=== PATIENT | male | born 1935 | race Caucasian/White ===

== ENCOUNTER 2020-06-02 18:02 | Emergency (ER) | payer MEDICARE, SELFPAY ==
--- NOTE | ~2020-06-02 | CT_ITS ---
EXAMINATION: CT brain wo con DATE: 06/02/2020 18:20 INDICATION: Speech deficit. TECHNIQUE: Computed tomography (CT) of the head was performed without intravenous contrast. The mA wa s adjusted according to patient size. Iterative reconstruction technique was employed. The dose-lengt h product was 605.33 mGy-cm. COMPARISON: None FINDINGS: There are scattered areas of low attenuation in the cerebral white matter. There is no intr acranial hemorrhage, acute infarction, or abnormal intracranial mass lesion. 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 The ventricles are normal in size. There is mild mucosal thickening in the p aranasal sinuses. There is a right otomastoid effusion. IMPRESSION: 1. 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 2. Moderate nonspecific cerebral white matter disease, which likely represents chronic small vessel i schemic disease. 3. Right otomastoid effusion. Reviewed, dictated and finalized at location A. [employer] IMPRESSION: 1. 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 2. Moderate nonspecific cerebral white matter disease, which likely represents chronic small vessel ischemic disease. 3. Right otomastoid effusion.
--- NOTE | ~2020-06-02 | XR_ITS ---
EXAMINATION: XR chest 1V DATE: 06/02/2020 18:24 INDICATION: Speech deficit. TECHNIQUE: A single frontal view of the chest was obtained. COMPARISON: None. FINDINGS: There is mild atelectasis versus scarring at the lung bases. No pleural effusion or pneumot horax. The heart size is normal. IMPRESSION: 1. Mild atelectasis versus scarring at the lung bases. Reviewed, dictated and finalized at location A. [employer]
--- NOTE | 2020-06-02 18:06 | ECG_ITS ---
Measurements Intervals [place] Rate: 102 P: NC: 0 QRS: 38 QRSD: 89 T: 62 QT: 335 QTc: 437 Interpretive Statements ATRIAL FIBRILLATION WITH RAPID VENTRICULAR RESPONSE ST ABNORMALITY IN ANTERIOR LEADS- CONSIDER ISCHEMIA BASELINE ARTIFACT- I, II, III, V6 ABNORMAL ECG Electronically Signed On 06-03-2020 7:58:44 [employer] by Marek Marie D.O.
--- NOTE | 2020-06-02 18:06 | ED.NEUROSD ---
HPI - Neuro Symptoms/Deficit General Chief Complaint: Suspected CVA Stated Complaint: stroke like symptoms Time Seen by Provider: 06/02/20 18:06 Source: patient and family Mode of arrival: EMS Limitations: no limitations History of Present Illness HPI Narrative: Patient is an 84-year-old male with history of hypertension, TIA, atrial fibrillation anticoagulated on warfarin who presents for evaluation of difficulty with speech. Patient reportedly was watching television this evening when he suddenly was having difficulty reading the words on the screen, was trying to speak to his and was unable to complete full sentences. The did not notice any facial droop, slurred speech, only nonsensical speech. EMS was called, the time of EMS arrival, they reported that the patient was not able to speak in fluent sentences. They noted no focal deficits on exam. Patient was transported to our facility in stable condition at the time of my assessment, symptoms have completely resolved. Patient denies any current dysarthria, headache, vision changes, weakness or numbness. No chest pain or abdominal pain. Related Data Home Medications Medication Instructions Recorded Confirmed warfarin [Coumadin] 2 mg PO DAILY 06/02/20 Allergies Allergy/AdvReac Type Severity Reaction Status Date / Time codeine Allergy Unknown NEARLY Verified 06/02/20 18:20 PASSED OUT/ABD PAIN levofloxacin Allergy Unknown WEAKNESS/LOSS Verified 06/02/20 18:20 OF APPETITE Review of Systems Review of Systems: Narrative: CONSTITUTIONAL: Denies fever, chills, or sweats. EYES: Denies visual changes ENT: Denies rhinorrhea, congestion, sore throat, or otalgia. CARDIOVASCULAR: Denies chest pain RESPIRATORY: Denies cough or dyspnea. GASTROINTESTINAL: Denies abdominal pain, nausea, vomiting GENITOURINARY: Denies dysuria or hematuria. SKIN: Denies rash or itching. MUSCULOSKELETAL: Denies joint pain NEUROLOGIC: Denies headache, numbness, or weakness. [facility] Past Medical History Medical History (Updated 06/02/20 @ 20:12 by Nirmala Torres MD) Atrial fibrillation CVA (cerebral vascular accident) Hypertension TIA (transient ischemic attack) Surgical History Surgical History (Updated 06/02/20 @ 20:12 by Nirmala Torres MD) H/O inguinal hernia repair Social History Social History (Updated 06/02/20 @ 20:12 by Nirmala Torres MD) Alcohol intake: never Substance use: never Living arrangements: with family Gender identity (if verbalized by the patient): Male Exam Narrative: Exam Narrative: GENERAL: Awake, alert, conversant HEAD: Normocephalic, atraumatic. EYES: PERRLA and EOMI. ENT: Nares clear, no rhinorrhea or epistaxis. Mucous membranes moist. NECK: Supple. CHEST: No respiratory distress, breathing even and non labored HEART: Tachycardic rate, sinus rhythm ABDOMEN:Non distended, non tender EXTREMITIES: Normal range of motion. No edema. SKIN: Warm, dry, no rash. NEURO:No focal deficits. Alert and oriented x3. Finger to nose intact bilaterally. EOMs intact without nystagmus. No facial droop/asymmetry noted bilaterally. Grimace intact. Intact sensation in face. Hearing intact bilaterally. Shoulder shrug intact. Strength 5/5 bilateral upper extremities. Strength 5/5 bilateral lower extremities. Reflexes 2+ patellar. Heel to victor intact bilaterally. Ambulatory exam deferred. Course Vital Signs Vital signs: Vital Signs Temperature 36.3 C L 06/02/20 18:14 Pulse Rate 126 H 06/02/20 18:14 Respiratory Rate 20 06/02/20 18:14 Blood Pressure 160/110 H 06/02/20 18:14 Pulse Oximetry 100 06/02/20 18:14 Temperature 36.3 C L 06/02/20 18:14 Pulse Rate 126 H 06/02/20 18:14 Respiratory Rate 20 06/02/20 18:14 Blood Pressure 160/110 H 06/02/20 18:14 Pulse Oximetry 100 06/02/20 18:14 MDM - Neuro Symptoms/Deficit MDM Narrative Medical decision making narrative: Patient presented for evaluation of di
[2020-06-02 18:14] VITALS: BP 160/110; PULSE 126; RESP 20; TEMP 36.3; O2SAT 100
[2020-06-02 18:50] LABS: Basophils Absolute Auto 0.1 K/mm3 (0.0-0.1); Basophils Percent Auto 0.8 % (0.2-1.2); Eosinophils Absolute Auto 0.2 K/mm3 (0-0.3); Hematocrit 45.2 % (42.0-52.0); Hemoglobin 15.1 g/dL (14.0-18.0); Immature Granulocyte Absolute 0.02 K/mm3 (0.00-0.031); Immature Granulocyte Percent A 0.3 % (0-0.5); Lymphocytes Absolute Auto 3.18 K/mm3 (0.9-3.2); Lymphocytes Percent Auto 40.2 % (18.3-44.2); Mean Corpuscular HGB Conc 33.4 g/dl (32-36); Mean Corpuscular Hemoglobin 32.1 pg (26-34); Mean Corpuscular Volume 96.2 fl (80-100); Mean Platelet Volume 10.5 fl (7.4-10.4); Monocytes Absolute Auto 0.6 K/mm3 (0.1-0.6); Monocytes Percent Auto 7.7 % (2.6-8.5); Neutrophils Absolute Auto 3.9 K/mm3 (1.3-6.7); Platelet Count Result 154 k/mm3 (150-375); Red Cell Distribution Width 13.1 % (11.5-14.5); White Blood Count 7.9 K/mm3 (4.5-10.0)
[2020-06-02 19:00] VITALS: BP 172/96; PULSE 99; RESP 18; O2SAT 99
[2020-06-02 19:00] LABS: INR 1.8; Partial Thromboplastin Time 37.1 SECONDS (22.3-36.8); Prothrombin Time 21.1 Seconds (11.1-14.7)
[2020-06-02 19:07] LABS: Anion Gap 11 mmol/L (8-16); Blood Urea Nitrogen 14 mg/dL (9-20); Calcium 8.7 mg/dL (8.4-10.2); Carbon Dioxide 28 mmol/L (22-30); Chloride 104 mmol/L (98-107); Estimated Glomerular Filt Rate > 60; Glucose 107 mg/dL (75-110); Potassium 3.4 mmol/L (3.4-5.0); Sodium 143 mmol/L (137-145)
[2020-06-02 19:19] LABS: Troponin I < 0.012 ng/mL (0.000-0.034)
[2020-06-02 20:15] VITALS: BP 158/93; PULSE 98; RESP 18; O2SAT 99
== END 2020-06-02 20:25 | disposition left against medical advice (07) ==
PROVIDERS: Emergency Provider Emergency Medicine
DX: G45.9 Transient cerebral ischemic attack, unspecified (principal); Z86.73 Personal history of transient ischemic attack (TIA), and cerebral infarction without residual deficits; I48.91 Unspecified atrial fibrillation; Z79.01 Long term (current) use of anticoagulants; I10 Essential (primary) hypertension; R90.82 White matter disease, unspecified; R91.8 Other nonspecific abnormal finding of lung field; R94.31 Abnormal electrocardiogram [ECG] [EKG]
CPT/HCPCS: 36415; 70450; 71045; 80048; 84484; 85025; 85610; 85730; 93005; 99284